=== PATIENT | female | born 1995 | race American Indian/Alaskan Native ===

== ENCOUNTER 2022-02-18 23:37 | Emergency (ER) | payer SELFPAY ==
[2022-02-18 23:40] VITALS: BP 135/79
--- NOTE | 2022-02-19 03:10 | Emergency Department Report ---
HPI - General Chief Complaint: Allergic Reaction Time Seen by Provider: 02/19/22 03:01 - HPI HPI: 26-year-old female status post saddleback caterpillar sting to her left lateral calf area prior to arrival comes in for evaluation. She states that she removed caterpillar hairs using tape. States that staying with severe and she initially could not move due to intense pain. She also had localized redness to the area initially appeared. However, she is has been waiting in the ER for 3 hours and 30 minutes symptoms have completely resolved. She no longer has redness, pain, shortness of breath, or rash. Patient brought in the [facility] for exami [facility] and it does appear to be a saddleback caterpillar ED Review of Systems ROS: Stated complaint: STUNG BY INSECT Other details as noted in HPI Physical Exam - Physical Exam Vital Signs: Vital Signs 02/18/22 23:39 Temperature 99.0 F Pulse Rate 103 H Respiratory 18 Rate Blood Pressure 135/79 O2 Sat by Pulse 100 Oximetry Physical Exam: General: No acute distress Head: Atraumatic Eyes: normal appearance ENT: Moist mucous membranes Neck: Normal appearance, no midline tenderness Chest: Clear to auscultation bilaterally CV: Regular rate and rhythm Abdomen: Soft, normal bowel sounds, nontender, nondistended, no rebound or gu arding Back: Normal inspection Extremity: Normal inspection, full range of motion Neuro: Alert O x 3, no facial asymmetry, speech clear, no gross motor sensory deficit Psych: Appropriate behavior Skin: Left lateral calf area staying without redness, warmth, puncture wound, tenderness, or swelling ED Course Vital Signs 02/18/22 23:39 Temperature 99.0 F Pulse Rate 103 H Respiratory 18 Rate Blood Pressure 135/79 O2 Sat by Pulse 100 Oximetry ED Medical Decision Making - Medical Decision Making 26-year-old female presents to the hospital after saddleback caterpillar sting. She did she had a localized skin reaction is severe pain which has since completely resolved during ED stay and prior to MD evaluation. Patient likely successfully removed residual caterpillar hairs with tape prior to arrival. Patient advised to apply hydrocortisone cream to the area. She was offered a prescription however, she wanted to leave without discharge papers or further medication. Critical Care Time: No Critical care attestation.: If time is entered above; I have spent that time in minutes in the direct care of this critically ill patient, excluding procedure time. ED Disposition Clinical Impression: Caterpillar sting Disposition: 01 HOME / SELF CARE / HOMELESS Is pt being admited?: No Condition: Stable Time of Disposition: 03:14 (Left without discharge papers)
== END 2022-02-19 03:01 | disposition home or self-care (01) ==
LOC: ED 23:37
DX: T63.434A Toxic effect of venom of caterpillars, undetermined, initial encounter (principal); X58.XXXA Exposure to other specified factors, initial encounter
CPT/HCPCS: 99281